=== PATIENT | male | born 1955 | race Caucasian/White ===

== ENCOUNTER 2023-01-17 07:52 | Outpatient (CLI) | payer OTHER, SELFPAY | END 2023-01-17 07:53 | disposition home or self-care (01) | LOC: WOUND 07:54 | PROVIDERS: Visit Provider Nurse Practitioner Family | DX: T81.31XA Disruption of external operation (surgical) wound, not elsewhere classified, initial encounter (principal) | CPT/HCPCS: 11042; 99202 ==

== ENCOUNTER 2023-01-24 14:17 | Outpatient (CLI) | payer OTHER, SELFPAY | END 2023-01-24 14:18 | disposition home or self-care (01) | LOC: WOUND 14:17 | PROVIDERS: Visit Provider Nurse Practitioner Family | DX: T81.31XA Disruption of external operation (surgical) wound, not elsewhere classified, initial encounter (principal) | CPT/HCPCS: 11042 ==

== ENCOUNTER 2023-01-31 14:59 | Outpatient (CLI) | payer OTHER, SELFPAY | END 2023-01-31 15:00 | disposition home or self-care (01) | PROVIDERS: Visit Provider Nurse Practitioner Family | DX: T81.31XA Disruption of external operation (surgical) wound, not elsewhere classified, initial encounter (principal) | CPT/HCPCS: 11042 ==

== ENCOUNTER 2023-02-07 14:59 | Outpatient (CLI) | payer OTHER, SELFPAY | END 2023-02-07 15:00 | disposition home or self-care (01) | LOC: WOUND 14:59 | PROVIDERS: Visit Provider Nurse Practitioner Family | DX: T81.31XA Disruption of external operation (surgical) wound, not elsewhere classified, initial encounter (principal) | CPT/HCPCS: 97602 ==

== ENCOUNTER 2023-02-14 14:55 | Outpatient (CLI) | payer OTHER, SELFPAY | END 2023-02-14 14:56 | disposition home or self-care (01) | LOC: WOUND 14:55 | PROVIDERS: Visit Provider Family Medicine | DX: T81.31XA Disruption of external operation (surgical) wound, not elsewhere classified, initial encounter (principal) | CPT/HCPCS: 11042 ==

== ENCOUNTER 2023-02-21 15:02 | Outpatient (CLI) | payer OTHER, SELFPAY | END 2023-02-21 15:03 | disposition home or self-care (01) | LOC: WOUND 15:02 | PROVIDERS: Visit Provider Nurse Practitioner Family | DX: T81.31XA Disruption of external operation (surgical) wound, not elsewhere classified, initial encounter (principal) | CPT/HCPCS: 11042 ==

== ENCOUNTER 2023-02-28 14:56 | Outpatient (CLI) | payer OTHER, SELFPAY | END 2023-02-28 14:57 | disposition home or self-care (01) | LOC: WOUND 14:57 | PROVIDERS: Visit Provider Nurse Practitioner Family | DX: T81.31XA Disruption of external operation (surgical) wound, not elsewhere classified, initial encounter (principal) | CPT/HCPCS: 11042 ==

== ENCOUNTER 2023-03-07 14:58 | Outpatient (CLI) | payer OTHER, SELFPAY | END 2023-03-07 14:59 | disposition home or self-care (01) | LOC: WOUND 14:58 | PROVIDERS: Visit Provider Nurse Practitioner Family | DX: T81.31XA Disruption of external operation (surgical) wound, not elsewhere classified, initial encounter (principal) | CPT/HCPCS: 99212 ==